=== PATIENT | male | born 1950 | race Caucasian/White ===

== ENCOUNTER 2017-07-04 13:07 | Emergency (ER) | payer MEDICARE, OTHER ==
[~2017-07-04] VITALS: Ht 172.7 cm; Wt 100.0 kg
[~2017-07-04 13:07] MED LIST: AMLO-15 PO; ASPI81TA3 PO; ATEN50TA PO; ATOR80TA18 PO; CANA100T PO; CLON-379 PO; CLON0.5T4 PO; FAMO40TA38 PO; LOSA1TAB21 PO; METF500T4 PO; OXYB5TAB PO; TAMS-14 PO
[2017-07-04 13:09] VITALS: Ht 172.7 cm; Wt 100.0 kg
[2017-07-04] MEDS ORDERED: ONDANSETRON 4 MG INJ IV STA ×2 (13:48→15:37)
[2017-07-04] MEDS ORDERED: HYDROmorphONE 1 MG/ML SYG IV STA ×2 (13:48→15:37)
[2017-07-04 14:30] LABS: BASOPHIL # 0.1 10^3/ul (0.0-0.1); BASOPHILS % 0.5 % (0.0-2.0); EOSINOPHILS # 0.1 10^3/ul (0.0-0.5); EOSINOPHILS % 0.8 % (0.0-7.0); HEMATOCRIT 47.6 % (42.0-52.0); HEMOGLOBIN 15.5 g/dl (14.0-18.0); LYMPHOCYTES # 1.7 10^3/ul (0.8-2.9); LYMPHOCYTES % 15.5 % (15.0-51.0); MEAN CORPUSCULAR HEMOGLOBIN 29.1 pg (29.0-33.0); MEAN CORPUSCULAR HGB CONC 32.6 g/dl (32.0-37.0); MEAN CORPUSCULAR VOLUME 89.5 fl (82.0-101.0); MEAN PLATELET VOLUME 11.2 fl (7.4-10.4); MONOCYTES % 9.5 % (0.0-11.0); NEUTROPHILS % 73.4 % (39.0-77.0); PLATELET COUNT 159 10^3/UL (140-415); RED BLOOD COUNT 5.32 10^6/ul (4.70-6.10); WHITE BLOOD COUNT 10.9 10^3/ul (4.8-10.8)
[2017-07-04 14:45] LABS: ALBUMIN 4.5 g/dl (3.3-4.9); ALBUMIN/GLOBULIN RATIO 1.36; BILIRUBIN,INDIRECT 0.8 mg/dl (0-1.1); BILIRUBIN,TOTAL 0.8 mg/dl (0.2-1.3); CREATININE 0.8 mg/dl (0.61-1.24); POTASSIUM 4.8 mmol/L (3.5-5.1); TOTAL PROTEIN 7.8 g/dl (6.1-8.1)
--- NOTE | 2017-07-04 15:00 | RADRPT ---
PROCEDURE: CT ABDOMEN AND PELVIS WITHOUT CONTRAST. CLINICAL INDICATION: Right flank pain TECHNIQUE: CT scan of the abdomen and pelvis without contrast was performed on a multidetector hig h-resolution CT scanner. The patient was scanned without intravenous contrast. Coronal and sagittal reformatted images were obtained from the axial source images. Images were reviewed on a high-resol [employer] PACS workstation. The total exam CTDI equals 21.5 mGy and the total exam DLP equals 1277.3 mGy -cm. One or more of the following dose reduction techniques were used: Automated exposure control. Adjustment of the mA and/or kV according to patient size. Use of iterative reconstruction technique. DICOM images are available COMPARISON: None FINDINGS: CT abdomen: Bilateral lower lobe atelectasis is noted. Heart size is enlarged. There is no significant pericardi al effusion. Hepatic morphology is within limits. No gross contour deforming masses. Gallstones are noted within the gallbladder. No intrahepatic or extrahepatic biliary dilatation. The spleen and pancreas are within normal limits. Both adrenal glands are within normal limits. Both kidneys are and normal anatomic position. There is a horseshoe kidney. The right kidney is enla rged with mild right sided hydronephrosis. 4.8 and 4.7 cm large cysts are noted within the right kid karina. There are several nonobstructing stone within the right kidney. There is bilateral perinephric fat stranding, right greater than left. A 4.6 mm faint calcification noted within the right renal pe lvis. There is right periureteric fat stranding. The visualized GI tract demonstrates normal caliber loops of small and large bowel. No evidence of b owel obstruction. Stool filled loops of large bowel suggestive of constipation. The appendix is with in normal limits. Atherosclerotic calcification of the aorta is identified. No same retroperitoneal lymphadenopathy. CT pelvis: The bladder appears to within normal limits. There is prostamegaly measuring 5.6 x 6.1 cm. The recto sigmoid colon is within normal limits. No significant free fluid. No significant pelvic lymphadenopa thy. There are fat-containing bilateral inguinal hernias, right greater left. The visualized osseous structures demonstrates multilevel degenerative disease of the spine with sma ll sclerotic foci noted within the L3 vertebral body. IMPRESSION: 1. Horseshoe kidney, with enlargement of the right kidney and mild hydronephrosis with bilateral per inephric fat stranding and right periureteric fat stranding. No gross ureteric calculi. Findings are highly concerning for recently passed stone versus underlying infection. 2. Multiple bilateral renal cysts. Multiple nonobstructing stones within the right kidney, with the largest stone measuring 1.3 cm. There is also a faint stone noted within the right renal pelvis adryan uring 4.6 mm. Bilateral renal atherosclerotic disease. 3. Cholelithiasis. 4. No evidence of bowel obstruction. Stool filled loops of large bowel suggestive of constipation. 5. Prostamegaly, protruding into the base of the bladder. Recommend correlation with PSA levels. 6. Fat-containing bilateral inguinal hernias, right greater than left. RPTAT: AAPP Physician [place] Date Time Electronically viewed and signed by Physician [place] on 07/04/2017 15:00 TOM/
[2017-07-04] MEDS ORDERED: AMLO-147 PO (15:20)
[2017-07-04] MEDS ORDERED: ASPI-664 PO (15:21)
[2017-07-04] MEDS ORDERED: MTF1000T PO (15:22)
[2017-07-04] MEDS ORDERED: ICOS1CAP PO (15:23)
[2017-07-04] MEDS ORDERED: ERGO2000 PO (15:23)
[2017-07-04 16:17] VITALS: BP 149/72; PULSE 69; RESP 20
[2017-07-04] MEDS ORDERED: TAMS-14 PO (17:17)
[2017-07-04] MEDS ORDERED: HYDR-902 PO (17:17)
[2017-07-04] MEDS ORDERED: DICY10CA60 PO (17:17)
--- NOTE | 2017-07-04 17:22 | ERD ---
ER Documentation Chief Complaint Chief Complaint right flank pain onset 2 hrs ago HPI This is a 58-year-old male with a known history of renal stones complains of 2 hours ago with sudden onset of sharp mid right abdominal pain. No flank pain does have some mild nausea but no vomiting diarrhea. Patient says it feels similar to when he had his kidney stones. He has had no hematuria no dysuria. No chest pain or shortness of breath pain is currently moderate without radiation ROS All systems reviewed and are negative except as per history of present illness. Medications Home Meds Active Scripts Tamsulosin Hcl* (Flomax*) 0.4 Mg Cap.er.24h, 0.4 MG PO QPM, #30 CAP Prov:HARIKA HOWE DO 07/04/17 Hydrocodone/Acetaminophen ([place] 10-325 Tablet) 1 Each Tablet, 1 TAB PO Q6H Y for PAIN, #20 TAB Prov:HARIKA HOWE. DO 07/04/17 Dicyclomine Hcl* (Bentyl*) 10 Mg Capsule, 20 MG PO QID, #30 CAP Prov:HARIKA HOWE A. DO 07/04/17 Reported Medications Ergocalciferol (Vitamin D2) (VITAMIN D2) 2,000 Unit Tablet, 2000 UNIT PO DAILY, TAB 07/04/17 Icosapent Ethyl (VASCEPA) 1 Gm Capsule, 1 GM PO BID, CAP 07/04/17 Metformin* (Glucophage*) 1,000 Mg Tablet, 1000 MG PO BID, #60 TAB 07/04/17 Aspirin* (Aspirin* EC) 81 Mg Tablet.dr, 81 MG PO DAILY, TAB 07/04/17 Amlodipine Besylate* (Amlodipine Besylate*) 10 Mg Tablet, 10 MG PO DAILY, #30 TAB 07/04/17 Oxybutynin Chloride* (Oxybutynin Chloride* ER) 5 Mg/Blist Pack Tab.osm.24, 5 MG PO HS, TAB.SA 11/18/14 Losartan-Hydrochlorothiazide (Losartan-HCTZ) 100-12.5 Mg Tab, 1 TAB PO DAILY, TAB 11/18/14 Tamsulosin Hcl* (Flomax*) 0.4 Mg Cap.er.24h, 0.4 MG PO DAILY, CAP 11/18/14 Clonidine Hcl* (Clonidine Hcl*) 0.1 Mg Tab, 0.1 MG PO DAILY Y for ELEVATED BLOOD PRESSURE, TAB 11/18/14 Clonazepam* (Clonazepam*) 0.5 Mg Tablet, 0.5 MG PO Q6 for ANXIETY, TAB 11/18/14 Atenolol* (Atenolol*) 50 Mg Tablet, 50 MG PO 03/05/12 Atorvastatin (Lipitor) 80 Mg Tablet, 80 MG PO 03/05/12 Famotidine* (Pepcid*) 40 Mg Tablet, 20 MG PO BID 02/02/11 Discontinued Reported Medications Canagliflozin (Invokana) 100 Mg Tablet, 100 MG PO DAILY, TAB 11/18/14 Metformin Hcl* (Metformin Hcl*) 500 Mg Tablet, 500 MG PO BID, TAB 11/18/14 Amlodipine-Benazepril (Amlodipine-Benazepril) 1 Cap Capsule, 1 CAP PO 03/05/12 Aspirin* (Aspirin* Chew) 81 Mg Tab.chew, 81 MG PO 03/05/12 Allergies Allergies: Coded Allergies: No Known Drug Allergies (Verified Allergy, Unknown, 07/08/12) PMhx/Soc History of Surgery: No Anesthesia Reaction: No Hx Neurological Disorder: No Hx Respiratory Disorders: No Hx Cardiac Disorders: Yes (htn, cardiac stent) Hx Psychiatric Problems: No Hx Miscellaneous Medical Probl: No Hx Alcohol Use: No Hx Substance Use: No Hx Tobacco Use: No Smoking Status: Never smoker FmHx Family History: No coronary disease Physical Exam Vitals Vital Signs Date Time Temp Pulse Resp B/P Pulse Ox O2 Delivery O2 Flow Rate FiO2 07/04/17 16:17 69 20 149/72 98 Room Air 07/04/17 13:09 98.3 55 18 175/80 99 Physical Exam Const: Well-developed, well-nourished Head: Atraumatic, normocephalic Eyes: Normal Conjunctiva, PERRLA, EOMI, normal sclera, no nystagmus ENT: Normal External Ears, Nose and Mouth, moist mucus membranes. Neck: Full range of motion. No meningismus, no lymphadenopathy. Resp: Clear to auscultation bilaterally, no wheezing, rhonchi, rales Cardio: Regular rate and rhythm, no murmurs, S1 S2 present Abd: Soft, tenderness to the mid right and lower abdomen that is moderate, minimal to no pain in the right upper quadrant or epigastric region, non distended. Normal bowel sounds, no guarding or rebound, no pulsitile abdominal masses or bruits Skin: No petechiae or rashes, no ecchymosis , no maculopapular rash Back: No midline or flank tenderness Ext: No cyanosis, or edema, FROM x 4, normal inspection, neurovascularly intact x 4 Neur: Awake and alert, STR 5/5 x 4, sensation intact x 4, no focal findings, cerebellum intact Psych: Normal Mood and Affect Result Diagram: 07/04/17 1355 07/04/17 1355 Results 24 hrs Laboratory Tests Test 07/04/17 13:55 White Blood Count 10.910^3/ul Red Blood Count 5.3210^6/ul Hemoglobin 15.5g/dl Hematocrit 47.6% Mean Corpuscular Volume 89.5fl Mean Corpuscular Hemoglobin 29.1pg Mean Corpuscular Hemoglobin Concent 32.6g/dl Red Cell Distribution Width 13.0% Platelet Count 79648^3/UL Mean Platelet Volume 11.2fl Neutrophils % 73.4% Lymphocytes % 15.5% Monocytes % 9.5% Eosinophils % 0.8% Basophils % 0.5% Nucleated Red Blood Cells % 0.0/100WBC Neutrophils # 8.010^3/ul Lymphocytes # 1.710^3/ul Monocytes # 1.010^3/ul Eosinophils # 0.110^3/ul Basophils # 0.110^3/ul Nucleated Red Blood Cells # 0.010^3/ul Sodium Level 143mmol/L Potassium Level 4.8mmol/L Chloride Level 104mmol/L Carbon Dioxide Level 26mmol/L Anion Gap 18 Blood Urea Nitrogen 20mg/dl Creatinine 0.80mg/dl Glucose Level 111mg/dl Calcium Level 9.0mg/dl Total Bilirubin 0.8mg/dl Direct Bilirubin 0.00mg/dl Indirect Bilirubin 0.8mg/dl Aspartate Amino Transf (AST/SGOT) 37IU/L Alanine Aminotransferase (ALT/SGPT) 40IU/L Alkaline Phosphatase 61IU/L Total Protein 7.8g/dl Albumin 4.5g/dl Globulin 3.30g/dl Albumin/Globulin Ratio 1.36 Lipase 165U/L Current Medications Medications (Trade) Dose Ordered Sig/Bhavani Route PRN Reason Start Time Stop Time Status Last Admin Dose Admin Hydromorphone HCl (Dilaudid) 1 mg ONCE STAT IV 07/04/17 13:48 07/04/17 13:49 DC 07/04/17 14:01 Ondansetron HCl (Zofran Inj) 4 mg ONCE STAT IV 07/04/17 13:48 07/04/17 13:49 DC 07/04/17 14:01 Hydromorphone HCl (Dilaudid) 1 mg ONCE STAT IV 07/04/17 15:37 07/04/17 15:38 DC 07/04/17 15:51 Ondansetron HCl (Zofran Inj) 4 mg ONCE STAT IV 07/04/17 15:37 07/04/17 15:38 DC 07/04/17 15:51 Procedures/MDM PROCEDURE: CT ABDOMEN AND PELVIS WITHOUT CONTRAST. CLINICAL INDICATION: Right flank pain TECHNIQUE: CT scan of the abdomen and pelvis without contrast was performed on a multidetector high-resolution CT scanner. The patient was scanned without intravenous contrast. Coronal and sagittal reformatted images were obtained from the axial source images. Images were reviewed on a high-resolution PACS workstation. The total exam CTDI equals 21.5 mGy and the total exam DLP equals 1277.3 mGy-cm. One or more of the following dose reduction techniques were used: Automated exposure control. Adjustment of the mA and/or kV according to patient size. Use of iterative reconstruction technique. DICOM images are available COMPARISON: None FINDINGS: CT abdomen: Bilateral lower lobe atelectasis is noted. Heart size is enlarged. There is no significant pericardial effusion. Hepatic morphology is within limits. No gross contour deforming masses. Gallstones are noted within the gallbladder. No intrahepatic or extrahepatic biliary dilatation. The spleen and pancreas are within normal limits. Both adrenal glands are within normal limits. Both kidneys are and normal anatomic position. There is a horseshoe kidney. The right kidney is enlarged with mild right sided hydronephrosis. 4.8 and 4.7 cm large cysts are noted within the right kidney. There are several nonobstructing stone within the right kidney. There is bilateral perinephric fat stranding, right greater than left. A 4.6 mm faint calcification noted within the right renal pelvis. There is right periureteric fat stranding. The visualized GI tract demonstrates normal caliber loops of small and large bowel. No evidence of bowel obstruction. Stool filled loops of large bowel suggestive of constipation. The appendix is within normal limits. Atherosclerotic calcification of the aorta is identified. No same retroperitoneal lymphadenopathy. CT pelvis: The bladder appears to within normal limits. There is prostamegaly measuring 5.6 x 6.1 cm. The rectosigmoid colon is within normal limits. No significant free fluid. No significant pelvic lymphadenopathy. There are fat-containing bilateral inguinal hernias, right greater left. The visualized osseous structures demonstrates multilevel degenerative disease of the spine with small sclerotic foci noted within the L3 vertebral body. IMPRESSION: 1. Horseshoe kidney, with enlargement of the right kidney and mild hydronephrosis with bilateral perinephric fat stranding and right periureteric fat stranding. No gross ureteric calculi. Findings are highly concerning for recently passed stone versus underlying infection. 2. Multiple bilateral renal cysts. Multiple nonobstructing stones within the right kidney, with the largest stone measuring 1.3 cm. There is also a faint stone noted within the right renal pelvis measuring 4.6 mm. Bilateral renal atherosclerotic disease. 3. Cholelithiasis. 4. No evidence of bowel obstruction. Stool filled loops of large bowel suggestive of constipation. 5. Prostamegaly, protruding into the base of the bladder. Recommend correlation with PSA levels. 6. Fat-containing bilateral inguinal hernias, right greater than left. RPTAT: AAPP Physician [place] Date Time Electronically viewed and signed by Physician [place] on 07/04/2017 15:00 TOM/ CC: HARIKA HOWE DO Patient's pain is now controlled. The patient's pain is likely from a passed kidney stone. He does have gallstones but no clinical exam and no elevated LFTs. Did discuss this with the family about low-fat diet needs to follow-up. Warning signs and given to return. We will discharge him on Flomax, [place] and Bentyl Departure Diagnosis: Primary Impression: Kidney stones Additional Impression: Gallstones Condition: Stable Patient Instructions: Gallstones, Kidney Stone, Passed Additional Instructions: Your prostate is enlarged. Please see your primary doctor for exam and PSA blood test as soon as possible HARIKA HOWE DO Jul 04, 2017 17:22
[2017-07-05] MEDS ORDERED: CIPROFLOXACIN 400MG/D5W 200 ML IVPB ONE (04:30)
[2017-07-05] MEDS ORDERED: IBUP400T22 PO ×2 (12:44→12:45)
[2017-07-05] MEDS ORDERED: CIPR-193 PO ×2 (12:44→12:45)
== END 2017-07-04 16:20 | disposition home or self-care (01) ==
LOC: E/R 13:07
DX: N20.0 Calculus of kidney (principal); K80.20 Calculus of gallbladder without cholecystitis without obstruction; I10 Essential (primary) hypertension; Z79.82 Long term (current) use of aspirin; Z79.84 Long term (current) use of oral hypoglycemic drugs; Z98.61 Coronary angioplasty status
CPT/HCPCS: 36415; 74176; 80053; 83690; 85025; 96374; 96375; 96376; 99285; J1170; J2405

== ENCOUNTER 2017-07-05 03:10 | Inpatient (IN) | payer MEDICARE, OTHER ==
[~2017-07-05] VITALS: Ht 177.8 cm; Wt 99.9 kg
[~2017-07-05 03:10] MED LIST changes: +AMLO-147 PO; -AMLO-15 PO; +ASPI-664 PO; -ASPI81TA3 PO; -CANA100T PO; +DICY10CA60 PO; +ERGO2000 PO; +HYDR-902 PO; +ICOS1CAP PO; -METF500T4 PO; +MTF1000T PO
--- NOTE | 2017-07-05 03:29 | ERD ---
ER Documentation Chief Complaint Chief Complaint flank pain since yesterday,here yesterday; did not take norco as prescribed HPI The patient is a 66-year-old male, presenting to the ER because of recurrent right lower back pain and right flank pain that began about 1:30 AM. He was seen in the ER yesterday and had a CT scan of abdomen and the pelvic that showed "Horseshoe kidney, with enlargement of the right kidney and mild hydronephrosis with bilateral perinephric fat stranding and right periureteric fat stranding. No gross ureteric calculi. Findings are highly concerning for recently passed stone versus underlying infection. Multiple bilateral renal cysts. Multiple nonobstructing stones within the right kidney, with the largest stone measuring 1.3 cm. There is also a faint stone noted within the right renal pelvis measuring 4.6 mm. Bilateral renal atherosclerotic disease.". He was discharged with Bentyl, Flomax, [place]. However he did not fill the medications and came back because of recurring pain. CBC/CMP were done, but the urine was not checked on last ER visit. He does not smoke, drinks socially Past medical history: Diabetes mellitus, hypertension, BPH, anxiety, dyslipidemia, cholelithiasis, CAD Past surgical history: Stent PCI ROS All systems reviewed and are negative except as per history of present illness. Medications Home Meds Active Scripts Tamsulosin Hcl* (Flomax*) 0.4 Mg Cap.er.24h, 0.4 MG PO QPM, #30 CAP Prov:HARIKA HOWE DO 07/04/17 Hydrocodone/Acetaminophen ([place] 10-325 Tablet) 1 Each Tablet, 1 TAB PO Q6H Y for PAIN, #20 TAB Prov:HARIKA HOWE. DO 07/04/17 Dicyclomine Hcl* (Bentyl*) 10 Mg Capsule, 20 MG PO QID, #30 CAP Prov:HARIKA HOWE DO 07/04/17 Reported Medications Ergocalciferol (Vitamin D2) (VITAMIN D2) 2,000 Unit Tablet, 2000 UNIT PO DAILY, TAB 07/04/17 Icosapent Ethyl (VASCEPA) 1 Gm Capsule, 1 GM PO BID, CAP 07/04/17 Metformin* (Glucophage*) 1,000 Mg Tablet, 1000 MG PO BID, #60 TAB 07/04/17 Aspirin* (Aspirin* EC) 81 Mg Tablet.dr, 81 MG PO DAILY, TAB 07/04/17 Amlodipine Besylate* (Amlodipine Besylate*) 10 Mg Tablet, 10 MG PO DAILY, #30 TAB 07/04/17 Oxybutynin Chloride* (Oxybutynin Chloride* ER) 5 Mg/Blist Pack Tab.osm.24, 5 MG PO HS, TAB.SA 11/18/14 Losartan-Hydrochlorothiazide (Losartan-HCTZ) 100-12.5 Mg Tab, 1 TAB PO DAILY, TAB 11/18/14 Tamsulosin Hcl* (Flomax*) 0.4 Mg Cap.er.24h, 0.4 MG PO DAILY, CAP 11/18/14 Clonidine Hcl* (Clonidine Hcl*) 0.1 Mg Tab, 0.1 MG PO DAILY Y for ELEVATED BLOOD PRESSURE, TAB 11/18/14 Clonazepam* (Clonazepam*) 0.5 Mg Tablet, 0.5 MG PO Q6 for ANXIETY, TAB 11/18/14 Atenolol* (Atenolol*) 50 Mg Tablet, 50 MG PO 03/05/12 Atorvastatin (Lipitor) 80 Mg Tablet, 80 MG PO 03/05/12 Famotidine* (Pepcid*) 40 Mg Tablet, 20 MG PO BID 02/02/11 Discontinued Reported Medications Canagliflozin (Invokana) 100 Mg Tablet, 100 MG PO DAILY, TAB 11/18/14 Metformin Hcl* (Metformin Hcl*) 500 Mg Tablet, 500 MG PO BID, TAB 11/18/14 Amlodipine-Benazepril (Amlodipine-Benazepril) 1 Cap Capsule, 1 CAP PO 03/05/12 Aspirin* (Aspirin* Chew) 81 Mg Tab.chew, 81 MG PO 03/05/12 Allergies Allergies: Coded Allergies: No Known Drug Allergies (Verified Allergy, Unknown, 07/08/12) PMhx/Soc History of Surgery: No Anesthesia Reaction: No Hx Neurological Disorder: No Hx Respiratory Disorders: No Hx Cardiac Disorders: Yes (htn, cardiac stent) Hx Psychiatric Problems: No Hx Miscellaneous Medical Probl: No Hx Alcohol Use: No Hx Substance Use: No Hx Tobacco Use: No Physical Exam Vitals Vital Signs Date Time Temp Pulse Resp B/P Pulse Ox O2 Delivery O2 Flow Rate FiO2 07/05/17 03:30 99.3 62 20 164/76 97 Room Air 07/05/17 03:14 99.3 62 20 183/80 97 Physical Exam Const: No acute distress. Head: Atraumatic. Eyes: Normal Conjunctiva. ENT: Normal External Ears, Nose and Mouth. Neck: Full range of motion. No meningismus. Resp: Clear to auscultation bilaterally. Cardio: Regular rate and rhythm. Abd: Soft, non distended, normal bowel sounds, Right CVA tenderness Skin: No petechiae or rashes. Back: No midline or flank tenderness. Ext: No cyanosis, or edema. Neur: Awake and alert. No focal deficit Psych: Normal Mood and Affect. Results 24 hrs Laboratory Tests Test 07/05/17 03:49 Bedside Urine pH (LAB) 5.5 Bedside Urine Protein (LAB) Trace Bedside Urine Glucose (UA) 0.50% Bedside Urine Ketones (LAB) Negative Bedside Urine Blood 2+ Bedside Urine Nitrite (LAB) Negative Bedside Urine Leukocyte Esterase (L 1+ Current Medications Medications (Trade) Dose Ordered Sig/Bhavani Route PRN Reason Start Time Stop Time Status Last Admin Dose Admin Morphine Sulfate (morphine) 4 mg ONCE STAT IV 07/05/17 03:39 07/05/17 03:40 DC 07/05/17 03:52 Ondansetron HCl (Zofran Inj) 4 mg ONCE STAT IV 07/05/17 03:39 07/05/17 03:40 DC 07/05/17 03:53 Ketorolac Tromethamine (Toradol) 30 mg ONCE STAT IV 07/05/17 03:39 07/05/17 03:40 DC 07/05/17 03:53 Ciprofloxacin 500 mg 500 mg ONCE ONCE PO 07/05/17 04:30 07/05/17 04:31 Cancel Ciprofloxacin/ Dextrose (Cipro Ivpb) 200 ml @ 200 mls/hr ONCE ONCE IVPB 07/05/17 04:30 07/05/17 05:29 07/05/17 04:47 Procedures/MDM MEDICAL MAKING DECISION: The patient is a 66-year-old male, presenting with acute right pyelonephritis, right nephrolithiasis, cholelithiasis. He was treated with morphine 4 mg IV and Toradol 30 mg IV for pain, Zofran 4 mg IV for nausea and Cipro IV for acute right pyelonephritis with good response. The differential diagnoses considered include but are not limited to pyelonephritis, infected kidney stones, obstructing kidney stone, biliary colic , cholecystitis, cholangitis Consultation: I discussed the patient with the on-call urologist Dr Fermin at 4:30 am, who was made aware of the patient condition, the CT scan finding and accepted the consult Departure Diagnosis: Primary Impression: UTI (urinary tract infection) Additional Impressions: Right nephrolithiasis Cholelithiasis Condition: Stable Comments I discussed the findings with the patient. I am currently awaiting for his physician Dr. Boles to admit the patient Disclaimer: Inadvertent spelling and grammatical errors are likely due to EHR/ dictation software use and do not reflect on the overall quality of patient care. Also, please note that the electronic time recorded on this note does not necessarily reflect the actual time of the patient encounter. RACQUEL RAMIREZ MD Jul 05, 2017 03:29
[2017-07-05] MEDS ORDERED: morphine 4 MG/ML VIAL IV STA (03:39)
[2017-07-05] MEDS ORDERED: KETOROLAC 30 MG INJ IV STA (03:39)
[2017-07-05] MEDS ORDERED: ONDANSETRON 4 MG INJ IV STA (03:39)
[2017-07-05 03:50] LABS: URINE BLOOD (Dip) POC 2+ (NEGATIVE)
[2017-07-05] MEDS ORDERED: CIPROFLOXACIN 400MG/D5W 200 ML IVPB ONE (04:30)
[2017-07-05] MEDS ORDERED: CIPROFLOXACIN 500 MG TAB PO ONE (04:30)
[2017-07-05 05:33] VITALS: PULSE 59; TEMP 98.5
[2017-07-05] MEDS ORDERED: SOD CHLORIDE 0.9% 1,000 ML IV SCH (06:23)
[2017-07-05] MEDS ORDERED: ONDANSETRON 4 MG INJ IV PRN (06:30)
[2017-07-05] MEDS ORDERED: ACETAMINOPHEN 325 MG TAB PO PRN (06:30)
[2017-07-05] MEDS ORDERED: NACL 0.9% 3 ML SYG IV SCH (06:30)
[2017-07-05 06:37] VITALS: Ht 177.8 cm; Wt 99.9 kg
[2017-07-05] MEDS ORDERED: GLUCOSE GEL 15 GRAM TUBE PO PRN ×2 (06:45)
[2017-07-05] MEDS ORDERED: GLUCOSE GEL 15 GRAM TUBE BUCCAL PRN (06:45)
[2017-07-05] MEDS ORDERED: GLUCAGON 1 MG INJ IM PRN (06:45)
[2017-07-05] MEDS ORDERED: DEXTROSE 50% 50 ML SYRINGE IV PRN ×2 (06:45)
[2017-07-05] MEDS ORDERED: DEXTROSE 5%-0.45% NACL 1,000 ML IV SCH (07:00)
[2017-07-05 07:32] LABS: BASOPHILS % 0.3 % (0.0-2.0); HEMATOCRIT 41.7 % (42.0-52.0); HEMOGLOBIN 13.9 g/dl (14.0-18.0); LYMPHOCYTES # 1.2 10^3/ul (0.8-2.9); LYMPHOCYTES % 11.9 % (15.0-51.0); MEAN CORPUSCULAR HEMOGLOBIN 29.6 pg (29.0-33.0); MEAN CORPUSCULAR HGB CONC 33.3 g/dl (32.0-37.0); MEAN CORPUSCULAR VOLUME 88.9 fl (82.0-101.0); MEAN PLATELET VOLUME 10.8 fl (7.4-10.4); MONOCYTE # 1.2 10^3/ul (0.3-0.9); MONOCYTES % 11.2 % (0.0-11.0); NEUTROPHIL # 7.9 10^3/ul (1.6-7.5); NEUTROPHILS % 76.1 % (39.0-77.0); PLATELET COUNT 157 10^3/UL (140-415); RED BLOOD COUNT 4.69 10^6/ul (4.70-6.10); RED CELL DISTRIBUTION WIDTH 13.1 % (11.5-14.5); WHITE BLOOD COUNT 10.4 10^3/ul (4.8-10.8)
[2017-07-05 07:38] VITALS: BP 150/71; RESP 20
[2017-07-05] MEDS ORDERED: INSULIN ASPART [NOVOLOG] 3 ML PEN SC SCH (07:50)
[2017-07-05] MEDS: morphine 2 MG INJ IV PRN ×2 (07:56→11:41)
[2017-07-05 08:03] LABS: ALBUMIN 3.6 g/dl (3.3-4.9); ALBUMIN/GLOBULIN RATIO 1.2; CALCIUM 8.6 mg/dl (8.4-10.2); CREATININE 1.01 mg/dl (0.61-1.24); POTASSIUM 4.1 mmol/L (3.5-5.1); TOTAL PROTEIN 6.6 g/dl (6.1-8.1)
--- NOTE | 2017-07-05 09:04 | CONS ---
Date/Time of Note Date/Time of Note DATE: 07/05/17 TIME: 08:54 Assessment/Plan Assessment/Plan Chief Complaint/Hosp Course Suspect either low grade right pyelonephritis vs recent passing of stone. Recommend toradol, pain management, IVF/ PO hydration, continued abx, f/u on Ucx. Can discharge on abx for 10-14d and have patient f/u with our group for management of stone burden. No immediate need for surgical intervention as no evidence of obstruction currently. Call with ? Problems: Consultation Date/Type/Reason Admit Date/Time Jul 05, 2017 at 05:38 Date of Consultation: Jul 05, 2017 Reason for Consultation R abd pain with horse kidney and nephrolithiasis Hx of Present Illness Patient is 66yo male with hx of horseshoe kidney and known nephrolithasis who presented yesterday morning with R abd pain x 1d. He was sent home but represented with persistent pain. He has previously seen urologist many years ago and was recommended surgery, but refused. CT scan yesterday demonstrated multiple non obstructing stones in right kidney, no ureteral stones, no hydro and some right perinephric/ periureteral stranding. UA (+) for LE/blood. No fever. Normal vitals. Cr 1. Patient reports he is feeling better now, but just received pain medication. as stated in HPI Eyes: no complaints ENT: no complaints Respiratory: no complaints Cardiovascular: no complaints Gastrointestinal: other (pain) Skin: no complaints Neurologic: no complaints Lymphatic: no complaints Psychological: no complaints Past Medical History Medical History: no pertinent history Past Surgical History Past Surgical Hx: no surgical history Family History Significant Family History: no pertinent family hx Social History Alcohol Use: occasionally Smoking Status: Never smoker Drug Use: none Exam/Review of Systems Vital Signs Vitals Vital Signs Date Time Temp Pulse Resp B/P Pulse Ox O2 Delivery O2 Flow Rate FiO2 07/05/17 07:38 98.4 54 20 150/71 92 07/05/17 05:33 Room Air Exam Constitutional: alert, oriented, other (no distress) Psych: no complaints Respiratory: clear to auscultation Cardiovascular: regular rate and rhythm Gastrointestinal: soft, tender (over right kidney in abdomen) Musculoskeletal: nl extremities to inspection Extremities: normal pulses Results Result Diagram: 07/05/17 0707/05/17 07 Results 24 hrs Laboratory Tests Test 07/05/17 03:49 07/05/17 07:05 07/05/17 07:57 Bedside Urine pH (LAB) 5.5 Bedside Urine Protein (LAB) Trace H Bedside Urine Glucose (UA) 0.50% H Bedside Urine Ketones (LAB) Negative Bedside Urine Blood 2+ H Bedside Urine Nitrite (LAB) Negative Bedside Urine Leukocyte Esterase (L 1+ H White Blood Count 10.4 Red Blood Count 4.69 L Hemoglobin 13.9 L Hematocrit 41.7 L Mean Corpuscular Volume 88.9 Mean Corpuscular Hemoglobin 29.6 Mean Corpuscular Hemoglobin Concent 33.3 Red Cell Distribution Width 13.1 Platelet Count 157 Mean Platelet Volume 10.8 H Neutrophils % 76.1 Lymphocytes % 11.9 L Monocytes % 11.2 H Eosinophils % 0.0 Basophils % 0.3 Nucleated Red Blood Cells % 0.0 Neutrophils # 7.9 H Lymphocytes # 1.2 Monocytes # 1.2 H Eosinophils # 0.0 Basophils # 0.0 Nucleated Red Blood Cells # 0.0 Sodium Level 142 Potassium Level 4.1 Chloride Level 104 Carbon Dioxide Level 29 Anion Gap 13 Blood Urea Nitrogen 22 H Creatinine 1.01 Glucose Level 115 Calcium Level 8.6 Magnesium Level 1.7 Total Bilirubin 1.0 Direct Bilirubin 0.00 Indirect Bilirubin 1.0 Aspartate Amino Transf (AST/SGOT) 19 Alanine Aminotransferase (ALT/SGPT) 41 Alkaline Phosphatase 45 Total Protein 6.6 # Albumin 3.6 Globulin 3.00 Albumin/Globulin Ratio 1.20 Bedside Glucose 115 Imaging Free Text/Dictation reviewed and discussed with patient Medications Medications Current Medications Ondansetron HCl (Zofran Inj) 4 mg Q6H PRN IV NAUSEA AND/OR VOMITING; Start at 06:30 Acetaminophen (Tylenol Tab) 650 mg Q6H PRN PO PAIN LEVEL 1-3 OR FEVER; Start 07/05/17 at 06:30 Morphine Sulfate 2 mg 2 mg Q4H PRN IV SEVERE PAIN LEVEL 7-10 Last administered on 07/05/17 07:56; Admin Dose 2 MG; Start 07/05/17 at 06:30 Dextrose/Sodium Chloride (D5-1/2ns) 1,000 ml @ 100 mls/hr Q10H IV Last administered on 07/05/17 06:56; Admin Dose 100 MLS/HR; Start 07/05/17 at 07: 00 Diagnostic Test (Pha) (Accu-Chek) 1 ea 02 XX ; Start 07/06/17 at 02:00 Miscellaneous Information 1 ea NOTE XX ; Start 07/05/17 at 06:45 Glucose (Glutose) 15 gm Q15M PRN PO DECREASED GLUCOSE; Start 07/05/17 at 06:45 Glucose (Glutose) 22.5 gm Q15M PRN PO DECREASED GLUCOSE; Start 07/05/17 at 06: 45 Dextrose (D50w Syringe) 25 ml Q15M PRN IV DECREASED GLUCOSE; Start 07/05/17 at 06:45 Dextrose (D50w Syringe) 50 ml Q15M PRN IV DECREASED GLUCOSE; Start 07/05/17 at 06:45 Glucagon (Glucagen) 1 mg Q15M PRN IM DECREASED GLUCOSE; Start 07/05/17 at 06: 45 Glucose (Glutose) 15 gm Q15M PRN BUCCAL DECREASED GLUCOSE; Start 07/05/17 at 06:45 JALEESA LOWRY MD Jul 05, 2017 09:04
[2017-07-05 09:31] LABS: ADD UMIC YES; UR ASCORBIC ACID 20 mg/dL (NEGATIVE); UR BILIRUBIN (Dip) NEGATIVE (NEGATIVE); UR BLOOD (Dip) 1+ mg/dL (NEGATIVE); UR CLARITY CLEAR (CLEAR); UR COLOR YELLOW (YELLOW); UR GLUCOSE (Dip) 3+ mg/dL (NEGATIVE); UR KETONES (Dip) NEGATIVE (NEGATIVE); UR LEUKOCYTE ESTERASE (Dip) 3+ Leu/ul (NEGATIVE); UR NITRITE (Dip) NEGATIVE (NEGATIVE); UR RBC 12 /HPF (0-5); UR SPECIFIC GRAVITY (Dip) 1.022 (1.003-1.030); UR TOTAL PROTEIN (Dip) NEGATIVE (NEGATIVE); UR UROBILINOGEN (Dip) NEGATIVE (NEGATIVE)
[2017-07-05] MEDS ORDERED: CIPR-193 PO ×2 (12:44→12:45)
[2017-07-05] MEDS ORDERED: IBUP400T22 PO ×2 (12:44→12:45)
--- NOTE | 2017-07-05 12:47 | PDOCDIS ---
Discharge Instructions DIAGNOSIS Discharge Diagnosis UTI, nephrolithiasis CONDITION Patient Condition: Fair HOME CARE INSTRUCTIONS: Diet Instructions: RegularSpecial Diet: npo for now FOLLOW UP/APPOINTMENTS Follow-up Plan Take antibiotics for the next week, available at [facility] in the [facility] [address] in [place] You have been prescribed presciption strength ibuprofen for pain. Return to the hosptial if you feel any worsening of your condition LINK GALDAMEZ MD Jul 05, 2017 12:47
--- NOTE | 2017-07-05 12:49 | HP ---
Date/Time of Note Date/Time of Note DATE: 07/05/17 TIME: 12:47 Assessment/Plan VTE Prophylaxis VTE Prophylaxis Intervention: LMWH Lines/Catheters IV Catheter Type (from Nrsg): Peripheral IV Urinary Cath still in place: No Assessment/Plan Chief Complaint/Hosp Course 66 yo male with nephrolithiasis and pyelonephritis Pyelonephritis; - Contineu ciprofloxacin as an outpatient Nephrolithiaisis: - Pain control PRN - See Dr Bustos in clinic Problems: HPI/ROS Admit Date/Time Admit Date/Time Jul 05, 2017 at 05:38 Hx of Present Illness 66 yo male with h/o obesity, BPH, nephrolithaisis, hyprrtension who presented with abdominal and back pain On CT scan found to have evidence of passed kidney stone with pyelonephritsi Seen by urologist who recommended outpatient management with NSAID for pain control and abx ROS Eyes: no complaints ENT: no complaints Respiratory: no complaints Cardiovascular: no complaints Gastrointestinal: other (pain) Skin: no complaints Neurologic: no complaints Lymphatic: no complaints Psychological: no complaints PMH/Family/Social Past Medical History Medical History: no pertinent history Past Surgical History Past Surgical Hx: no surgical history Social History Alcohol Use: occasionally Smoking Status: Never smoker Drug Use: none Exam/Review of Systems Vital Signs Vitals Vital Signs Date Time Temp Pulse Resp B/P Pulse Ox O2 Delivery O2 Flow Rate FiO2 07/05/17 07:38 98.4 54 20 150/71 92 07/05/17 05:33 Room Air Labs Result Diagram: 07/05/17 0705 07/05/17 0705 Medications Medications Current Medications Ondansetron HCl (Zofran Inj) 4 mg Q6H PRN IV NAUSEA AND/OR VOMITING; Start at 06:30 Acetaminophen (Tylenol Tab) 650 mg Q6H PRN PO PAIN LEVEL 1-3 OR FEVER; Start 07/05/17 at 06:30 Morphine Sulfate 2 mg 2 mg Q4H PRN IV SEVERE PAIN LEVEL 7-10 Last administered on 07/05/17 11:41; Admin Dose 2 MG; Start 07/05/17 at 06:30 Dextrose/Sodium Chloride (D5-1/2ns) 1,000 ml @ 100 mls/hr Q10H IV Last administered on 07/05/17 06:56; Admin Dose 100 MLS/HR; Start 07/05/17 at 07: 00 Diagnostic Test (Pha) (Accu-Chek) 1 ea 02 XX ; Start 07/06/17 at 02:00 Miscellaneous Information 1 ea NOTE XX ; Start 07/05/17 at 06:45 Glucose (Glutose) 15 gm Q15M PRN PO DECREASED GLUCOSE; Start 07/05/17 at 06:45 Glucose (Glutose) 22.5 gm Q15M PRN PO DECREASED GLUCOSE; Start 07/05/17 at 06: 45 Dextrose (D50w Syringe) 25 ml Q15M PRN IV DECREASED GLUCOSE; Start 07/05/17 at 06:45 Dextrose (D50w Syringe) 50 ml Q15M PRN IV DECREASED GLUCOSE; Start 07/05/17 at 06:45 Glucagon (Glucagen) 1 mg Q15M PRN IM DECREASED GLUCOSE; Start 07/05/17 at 06: 45 Glucose (Glutose) 15 gm Q15M PRN BUCCAL DECREASED GLUCOSE; Start 07/05/17 at 06:45 LINK GALDAMEZ MD Jul 05, 2017 12:49
[2017-07-05] MEDS ORDERED: KETOROLAC 15 MG INJ IV STA (12:50)
--- NOTE | 2017-07-05 12:50 | DS ---
Date/Time of Note Date/Time of Note DATE: 07/05/17 TIME: 12:49 Discharge Summary Admission/Discharge Info Admit Date/Time Jul 05, 2017 at 05:38 Discharge Date/Time Discharge Diagnosis UTI, nephrolithiasis Patient Condition: Fair Hx of Present Illness 66 yo male with h/o obesity, BPH, nephrolithaisis, hyprrtension who presented with abdominal and back pain On CT scan found to have evidence of passed kidney stone with pyelonephritsi Seen by urologist who recommended outpatient management with NSAID for pain control and abx Hospital Course 66 yo male with nephrolithiasis and pyelonephritis CT scan showed horseshoe kidney with stones but no obstruction, perinephric stranding suggestive of infection. UA showed hematuria, pyuria. Pain controlled. Pyelonephritis; - Contineu ciprofloxacin as an outpatient Nephrolithiaisis: - Pain control PRN - See Dr Bustos in clinic Home Meds Active Scripts Ibuprofen* (Ibuprofen*) 400 Mg Tablet, 400 MG PO Q6H Y for PAIN, #20 TAB Prov:LINK GALDAMEZ MD 07/05/17 Ciprofloxacin Hcl* (Ciprofloxacin Hcl*) 250 Mg Tablet, 250 MG PO BID for 7 Days , #14 TAB Prov:LINK GALDAMEZ MD 07/05/17 Tamsulosin Hcl* (Flomax*) 0.4 Mg Cap.er.24h, 0.4 MG PO QPM, #30 CAP Prov:HARIKA HOWE DO 07/04/17 Hydrocodone/Acetaminophen ([place] 10-325 Tablet) 1 Each Tablet, 1 TAB PO Q6H Y for PAIN, #20 TAB Prov:HARIKA HOWE DO 07/04/17 Dicyclomine Hcl* (Bentyl*) 10 Mg Capsule, 20 MG PO QID, #30 CAP Prov:HARIKA HOWE DO 07/04/17 Reported Medications Ergocalciferol (Vitamin D2) (VITAMIN D2) 2,000 Unit Tablet, 2000 UNIT PO DAILY, TAB 07/04/17 Icosapent Ethyl (VASCEPA) 1 Gm Capsule, 1 GM PO BID, CAP 07/04/17 Metformin* (Glucophage*) 1,000 Mg Tablet, 1000 MG PO BID, #60 TAB 07/04/17 Aspirin* (Aspirin* EC) 81 Mg Tablet.dr, 81 MG PO DAILY, TAB 07/04/17 Amlodipine Besylate* (Amlodipine Besylate*) 10 Mg Tablet, 10 MG PO DAILY, #30 TAB 07/04/17 Oxybutynin Chloride* (Oxybutynin Chloride* ER) 5 Mg/Blist Pack Tab.osm.24, 5 MG PO HS, TAB.SA 11/18/14 Losartan-Hydrochlorothiazide (Losartan-HCTZ) 100-12.5 Mg Tab, 1 TAB PO DAILY, TAB 11/18/14 Tamsulosin Hcl* (Flomax*) 0.4 Mg Cap.er.24h, 0.4 MG PO DAILY, CAP 11/18/14 Clonidine Hcl* (Clonidine Hcl*) 0.1 Mg Tab, 0.1 MG PO DAILY Y for ELEVATED BLOOD PRESSURE, TAB 11/18/14 Clonazepam* (Clonazepam*) 0.5 Mg Tablet, 0.5 MG PO Q6 for ANXIETY, TAB 11/18/14 Atenolol* (Atenolol*) 50 Mg Tablet, 50 MG PO 03/05/12 Atorvastatin (Lipitor) 80 Mg Tablet, 80 MG PO 03/05/12 Famotidine* (Pepcid*) 40 Mg Tablet, 20 MG PO BID 02/02/11 Discontinued Reported Medications Canagliflozin (Invokana) 100 Mg Tablet, 100 MG PO DAILY, TAB 11/18/14 Metformin Hcl* (Metformin Hcl*) 500 Mg Tablet, 500 MG PO BID, TAB 11/18/14 Amlodipine-Benazepril (Amlodipine-Benazepril) 1 Cap Capsule, 1 CAP PO 03/05/12 Aspirin* (Aspirin* Chew) 81 Mg Tab.chew, 81 MG PO 03/05/12 Follow-up Plan Take antibiotics for the next week, available at [facility] in the [facility] [address] in [place] You have been prescribed presciption strength ibuprofen for pain. Return to the hosptial if you feel any worsening of your condition Primary Care Provider Eugenia Lew MD Pending Labs Laboratory Tests Test 07/05/17 03:49 07/05/17 04:00 07/05/17 07:05 07/05/17 07:57 Bedside Urine pH (LAB) 5.5 (5.0-8.5) Bedside Urine Protein (LAB) Trace (NEGATIVE) Bedside Urine Glucose (UA) 0.50% (NEGATIVE) Bedside Urine Ketones (LAB) Negative (NEGATIVE) Bedside Urine Blood 2+ (NEGATIVE) Bedside Urine Nitrite (LAB) Negative (NEGATIVE) Bedside Urine Leukocyte Esterase (L 1+ (NEGATIVE) Urine Color YELLOW (YELLOW) Urine Clarity CLEAR (CLEAR) Urine pH 5.0 (5.0-9.0) Urine Specific [place] 1.022 (1.003-1.030) Urine Ketones NEGATIVEmg/dL (NEGATIVE) Urine Nitrite NEGATIVEmg/dL (NEGATIVE) Urine Bilirubin NEGATIVEmg/dL (NEGATIVE) Urine Urobilinogen NEGATIVEmg/dL (NEGATIVE) Urine Leukocyte Esterase 3+Quyen/ul (NEGATIVE) Urine Microscopic RBC 12/HPF (0-5) Urine Microscopic WBC 76/HPF (0-5) Urine Hemoglobin 1+mg/dL (NEGATIVE) Urine Glucose 3+mg/dL (NEGATIVE) Urine Total Protein NEGATIVEmg/dl (NEGATIVE) White Blood Count 10.410^3/ul (4.8-10.8) Red Blood Count 4.6910^6/ul (4.70-6.10) Hemoglobin 13.9g/dl (14.0-18.0) Hematocrit 41.7% (42.0-52.0) Mean Corpuscular Volume 88.9fl (82.0-101.0) Mean Corpuscular Hemoglobin 29.6pg (29.0-33.0) Mean Corpuscular Hemoglobin Concent 33.3g/dl (32.0-37.0) Red Cell Distribution Width 13.1% (11.5-14.5) Platelet Count 84331^3/UL (140-415) Mean Platelet Volume 10.8fl (7.4-10.4) Neutrophils % 76.1% (39.0-77.0) Lymphocytes % 11.9% (15.0-51.0) Monocytes % 11.2% (0.0-11.0) Eosinophils % 0.0% (0.0-7.0) Basophils % 0.3% (0.0-2.0) Nucleated Red Blood Cells % 0.0/100WBC (0.0-0.0) Neutrophils # 7.910^3/ul (1.6-7.5) Lymphocytes # 1.210^3/ul (0.8-2.9) Monocytes # 1.210^3/ul (0.3-0.9) Eosinophils # 0.010^3/ul (0.0-0.5) Basophils # 0.010^3/ul (0.0-0.1) Nucleated Red Blood Cells # 0.010^3/ul (0.0-0.0) Sodium Level 142mmol/L (135-144) Potassium Level 4.1mmol/L (3.5-5.1) Chloride Level 104mmol/L (97-110) Carbon Dioxide Level 29mmol/L (21-31) Anion Gap 13 (8-16) Blood Urea Nitrogen 22mg/dl (7-20) Creatinine 1.01mg/dl (0.61-1.24) Glucose Level 115mg/dl (70-220) Calcium Level 8.6mg/dl (8.4-10.2) Magnesium Level 1.7mg/dl (1.7-2.5) Total Bilirubin 1.0mg/dl (0.2-1.3) Direct Bilirubin 0.00mg/dl (0.00-0.20) Indirect Bilirubin 1.0mg/dl (0-1.1) Aspartate Amino Transf (AST/SGOT) 19IU/L (15-46) Alanine Aminotransferase (ALT/SGPT) 41IU/L (13-69) Alkaline Phosphatase 45IU/L (42-121) Total Protein 6.6g/dl (6.1-8.1) Albumin 3.6g/dl (3.3-4.9) Globulin 3.00g/dl (1.3-3.2) Albumin/Globulin Ratio 1.20 Bedside Glucose 115mg/dL (70-220) Test 07/05/17 12:29 Bedside Glucose 106mg/dL (70-220) LINK GALDAMEZ MD Jul 05, 2017 12:50
[2017-07-06] MEDS ORDERED: ACCU-CHEK XX SCH (02:00)
== END 2017-07-05 13:10 | disposition home or self-care (01) | DRG 694 ==
LOC: E/R 03:10 → MS1 05:38
PROVIDERS: ADMIT Family Medicine; ATTEND Family Medicine
DX: N20.0 Calculus of kidney (principal); N39.0 Urinary tract infection, site not specified; Z95.5 Presence of coronary angioplasty implant and graft; K80.20 Calculus of gallbladder without cholecystitis without obstruction
CPT/HCPCS: 80053; 81001; 81003; 82962; 83735; 85025; 87086; 96374; 96375; J0744; J1815; J1885; J2270; J2405; J7030; J7042